=== PATIENT | female | born 1975 | race Caucasian/White ===

== ENCOUNTER 2017-01-24 10:24 | Inpatient (IN) | payer OTHER ==
[~2017-01-24] VITALS: Ht 152.4 cm; Wt 193.8 kg
[~2017-01-24 10:24] MED LIST: ASPIR 8181 M1 PO; ATENOLOL 25 MG25 M1 PO; AVALIDE 150-121 EACH PO; BUMEX2 MG PO; CATAPRES-TTS 20.2 MG TOP; CLONIDINE HCL0.2 M2 PO; DESYREL150 MG PO; GABAPENTIN 100100 MG PO; GEODON 80 MG CA80 MG PO; HALDOL 0.5 MG0.5 MG PO; LASIX 80 MG TAB80 M1 PO; LISINOPRIL5 MG; METOLAZONE 5 MG5 MG PO; NORCO 5-325 TA1 EACH PO; POTASSIUM20 PO; PRINIVIL20 MG PO; SLOW-MAG64 MG PO; XANAX 0.5 MG0.5 MG PO; XANAX 1 MG TABLE1 MG PO
[2017-01-24 10:25] VITALS: BP 150/85
[2017-01-24] MEDS ORDERED: PRINIVIL20 MG PO (10:38)
[2017-01-24] MEDS ORDERED: GABAPENTIN 100100 MG PO (10:39)
[2017-01-24 15:29] VITALS: BP 143/86
[2017-01-24 15:34] LABS: ABSOLUTE NEUTROPHILS 5.1 thou/uL (1.4-8.2); BASOPHILS 0.8 % (0.0-2.0); EOSINOPHILS 4.3 % (0.0-3.0); HEMATOCRIT 25.9 % (37.0-47.0); HEMOGLOBIN 8.5 gm/dL (12.0-15.0); LYMPHOCYTES 28.2 % (24.0-44.0); MCH 26.9 pg (26.0-34.0); MCHC 32.9 g/dL (28.0-37.0); MCV 81.8 fL (80.0-100.0); MONOCYTES 9.1 % (1.0-8.0); PLATELET COUNT 263 thou/uL (150-400); POLYS 57.6 % (36.0-66.0); RBC 3.16 mil/uL (4.20-5.00); RDW 15.7 % (10.5-14.5); WBC 8.9 thou/uL (4.0-11.0)
[2017-01-24 15:38] LABS: MANUAL DIFF NO
[2017-01-24 15:50] LABS: CALCIUM 8.9 mg/dL (8.5-10.1); CREATININE 1.4 mg/dL (0.6-1.0); POTASSIUM 3.8 mmol/L (3.5-5.1)
[2017-01-24 15:55] LABS: ALBUMIN 2.8 g/dL (3.4-5.0); TOTAL BILIRUBIN 0.5 mg/dL (<0.1-1.0); TOTAL PROTEIN 6.9 g/dL (6.4-8.2)
[2017-01-24 17:32] VITALS: BP 165/93
[2017-01-24 20:31] VITALS: BP 160/92
[2017-01-25 04:13] VITALS: BP 192/92
[2017-01-25 08:40] VITALS: BP 184/87
[2017-01-25 20:00] VITALS: BP 181/86
[2017-01-26 05:45] VITALS: BP 173/97
[2017-01-26 08:10] VITALS: BP 165/100
[2017-01-26] MEDS ORDERED: GABAPENTIN 100100 MG PO ×2 (16:25)
[2017-01-26 17:07] VITALS: BP 165/100
== END 2017-01-26 18:01 | disposition home or self-care (01) | DRG 554 ==
LOC: ER 10:24 → EROBS 12:58 → 4E 12:58
PROVIDERS: Nurse Practitioner Family
DX: M17.11 Unilateral primary osteoarthritis, right knee (principal); Z68.45 Body mass index [BMI] 70 or greater, adult; I11.0 Hypertensive heart disease with heart failure; I50.9 Heart failure, unspecified; G62.9 Polyneuropathy, unspecified; E66.01 Morbid (severe) obesity due to excess calories; F43.10 Post-traumatic stress disorder, unspecified; D64.9 Anemia, unspecified; X58.XXXA Exposure to other specified factors, initial encounter; N19 Unspecified kidney failure; G89.29 Other chronic pain; M54.9 Dorsalgia, unspecified; Z90.49 Acquired absence of other specified parts of digestive tract; Z90.710 Acquired absence of both cervix and uterus; Z88.6 Allergy status to analgesic agent; Z88.8 Allergy status to other drugs, medicaments and biological substances; Z88.0 Allergy status to penicillin; Z79.899 Other long term (current) drug therapy; Y93.89 Activity, other specified; Y92.89 Other specified places as the place of occurrence of the external cause; Y99.8 Other external cause status; Z79.82 Long term (current) use of aspirin
CPT/HCPCS: 10084

== ENCOUNTER 2021-10-06 00:54 | Emergency (ER) | payer OTHER ==
[~2021-10-06] VITALS: Ht 152.4 cm; Wt 163.3 kg
--- NOTE | ~2021-10-06 | EMS ---
[address] [address] EMS Patient Care Report Name: PAM MOJICA Room #: DEP AZEEM Wetzel#: [id number] Admission: 10/06/21 Attend Phys: Discharge: 10/06/21 Date of : 73 Report #: [id number] THIS REPORT FOR: //name// Report Transmitted: 10/07/2021 09:31 EMS Care Summary [place], [place]/[facility] Incident [id number] @ 10/06/2021 00:17 Incident Location [address] [place] [address] Patient MARGARITO MOJICA Female, 46 Years 1975 Patient Address [address] [address] Patient History Cancer, Unspecified,Congestive Heart Failure (CHF),Thyroid Disease, Patient Allergies Penicillin allergy,Haldol,Toradol,Reglan, Patient Medications Amlodipine, Chief Complaint SOB W/ ACTIVITY Disposition Transported No Lights/[place] Reason Hemorrhage/Laceration Transported To [facility] Narrative UPON ARRIVAL PT STANDING UPRIGHT CONSCIOUS AND ALERT. PT STATES SHE STARTED TO FEEL SOB WHILE WALKING TO THE BATHROOM AND THAT COMBINED WITH OTHER RECENT COMPLAINTS PROMPRTED HER TO CALL. PT C/O ABD PAIN FOR A FEW DAYS NOW. PT HAS HAD A MAJOR INCREASE IN LEG EDEMA FOR THE PAST WEEK. PT NOTICED BLOOD IN HER [address] [address] EMS Patient Care Report Name: PAM MOJICA Room #: DEP [facility]#: [id number] Admission: 10/06/21 Attend Phys: Discharge: 10/06/21 Date of : 73 Report #: [id number] STOOL YESTERDAY AFTERNOON. AND PT HAS PAIN IN THE LEFT ARM W/ MOVEMENT OR PALP. PT ASSISTED ONTO COT AND TRANSPORTED, Initial Vitals @00:34P: 69,CO: 4,SpO2: 79, @00:31P: 77,SpO2: 81, @00:41P: 70,BP: 181/109,SpO2: 74, @00:40P: 64,SpO2: 81, @00:31P: 69, @00:29P: 70,R: 24,BP: 164/78,Pain: 8/10,GCS: 15,CO: 3,SpO2: 100,Revised Trauma: 12,AK Suspected: false Assessments @00:24MENTAL:Event Oriented,Time Oriented,Person Oriented,Place Oriented,SKIN:HEENT:Head/Face: No Abnormalities,LUNG SOUNDS:Left Upper: Other,General: Other,Right Upper: Other,General: Nausea,Left Lower: No Abnormalities,Right Lower: No Abnormalities,ABDOMEN:Left Upper: Other,General: Other,Right Upper: Other,General: Nausea,Left Lower: No Abnormalities,Right Lower: No Abnormalities,PELVIS//GI:EXTREMITIES:Left Leg: Edema,Right Leg: Edema,Left Arm: No Abnormalities,Right Arm: No Abnormalities,PULSE:Radial: 2+ Normal,NEURO:No Abnormalities, Impression Abdominal Pain Procedures @00:24 ALS Assessment Response: UnchangedSucceeded @00:29 3-Lead ECG Response: UnchangedSucceeded @00:31 12-Lead ECG Response: UnchangedSucceeded Timeline 00:15,Call Received 00:15,Dispatch Notified 00:17,Dispatched 00:18,En Route 00:22,On Scene 00:23,At Patient 00:24,ALS Assessment,Response: UnchangedSucceeded, 00:29,BP: 164/78 M,PULSE: 70,RR: 24 R,SPO2: 100 Ox,ETCO2: ,BG: ,PAIN: 8,GCS: 15, 00:29,3-Lead ECG,Response: UnchangedSucceeded, 00:31,BP: / M,PULSE: 77,RR: R,SPO2: 81 Ox,ETCO2: ,BG: ,PAIN: ,GCS: , 00:31,12-Lead ECG,Response: UnchangedSucceeded, 00:31,BP: / M,PULSE: 69,RR: R,SPO2: Ox,ETCO2: ,BG: ,PAIN: ,GCS: , 00:32,Depart Scene [address] [address] EMS Patient Care Report Name: PAM MOJICA Room #: [facility] AZEEM Wtezel#: [id number] Admission: 10/06/21 Attend Phys: Discharge: 10/06/21 Date of : 73 Report #: [id number] 00:34,BP: / M,PULSE: 69,RR: R,SPO2: 79 Ox,ETCO2: ,BG: ,PAIN: ,GCS: , 00:40,BP: / M,PULSE: 64,RR: R,SPO2: 81 Ox,ETCO2: ,BG: ,PAIN: ,GCS: , 00:41,BP: 181/109 M,PULSE: 70,RR: R,SPO2: 74 Ox,ETCO2: ,BG: ,PAIN: ,GCS: , 00:54,At Destination 01:05,Call Closed Disclaimer v1.1 Copyright 2021 [employer] This EMS Care Summary contains data elements from the applicable legal record (which may be displayed differently). It is designed to provide pertinent information for the following purposes: continuity of care, clinical quality, and state data reporting. The complete legal record is available to ED staff and administrators of the receiving hospital in [place] [facility] [place] Tracker. All data is provided "as is."
[2021-10-06 02:27] LABS: ABSOLUTE NEUTROPHILS 2.1 thou/uL (1.4-8.2); BASOPHILS 1.1 % (0.0-2.0); EOSINOPHILS 4.5 % (0.0-3.0); HEMATOCRIT 31.8 % (37.0-47.0); HEMOGLOBIN 10.2 gm/dL (12.0-15.0); LYMPHOCYTES 42.9 % (24.0-44.0); MCHC 32.1 g/dL (28.0-37.0); MCV 84.1 fL (80.0-100.0); MONOCYTES 8.1 % (1.0-8.0); PLATELET COUNT 222 thou/uL (150-400); POLYS 43.4 % (36.0-66.0); RBC 3.78 mil/uL (4.20-5.00); RDW 15.6 % (10.5-14.5); WBC 4.8 thou/uL (4.0-11.0)
[2021-10-06 03:32] LABS: URINE BILIRUBIN NEGATIVE (Negative); URINE BLOOD NEGATIVE (Negative); URINE CLARITY CLEAR; URINE COLOR YELLOW; URINE GLUCOSE-RANDOM* NEGATIVE (Negative); URINE KETONES NEGATIVE (Negative); URINE LEUKOCYTES-REFLEX NEGATIVE (Negative); URINE NITRITE-REFLEX NEGATIVE (Negative); URINE PROTEIN (DIPSTICK) 1+ (Negative); URINE SPECIFIC GRAVITY 1.015 (1.005-1.035); URINE UROBILINOGEN 0.2 E.U./dl (0.2-1.0)
[2021-10-06 03:47] LABS: BACTERIA-REFLEX 1-9 Few /HPF (None Seen); CASTS None Seen /LPF (None Seen); CRYSTALS None Seen /LPF (None Seen); MUCUS 0-3 Light strn/LPF (None Seen); SQUAMOUS 4-10 Moderate /LPF (0-3); URINE RBC 1-2 Rare /HPF (NONE SEEN); URINE WBC-REFLEX 0-5 Rare /HPF (0-5)
[2021-10-06 04:21] LABS: CALCIUM 8.8 mg/dL (8.5-10.1); CREATININE 1.1 mg/dL (0.6-1.0); POTASSIUM 3.6 mmol/L (3.5-5.1)
[2021-10-06 04:30] LABS: ALBUMIN 3.4 g/dL (3.4-5.0); TOTAL BILIRUBIN 0.3 mg/dL (0.2-1.0); TOTAL PROTEIN 6.5 g/dL (6.4-8.2)
--- NOTE | 2021-10-06 07:18 | EKG ---
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 : 1975 Requested By: Yosi Serrano Order Number: [id number] MD: Sixto Alcantara Measurements Intervals [place] Rate: 65 P: -12 TN: 187 QRS: -25 QRSD: 112 T: 27 QT: 433 QTc: 451 Interpretive Statements Sinus rhythm Borderline intraventricular conduction delay Abnormal R-wave progression, late transition Baseline wander in lead(s) V2 Compared to ECG 04/07/2013 13:14:35 Sinus tachycardia no longer present Left-axis deviation no longer present Myocardial infarct finding no longer present Electronically Signed On 10-06-2021 7:18:25 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
[2021-10-06 08:13] VITALS: BP 126/60
== END 2021-10-06 08:13 | disposition home or self-care (01) ==
LOC: ER 00:54
PROVIDERS: Emergency Medicine
DX: R10.84 Generalized abdominal pain (principal); I11.0 Hypertensive heart disease with heart failure; I50.9 Heart failure, unspecified; F41.9 Anxiety disorder, unspecified; Z79.899 Other long term (current) drug therapy; Z88.5 Allergy status to narcotic agent; Z88.0 Allergy status to penicillin; Z88.8 Allergy status to other drugs, medicaments and biological substances; Z90.49 Acquired absence of other specified parts of digestive tract